=== PATIENT | female | born 1970 | race Caucasian/White ===

== ENCOUNTER 2019-02-06 00:11 | Inpatient (IN) | payer BC ==
[2019-02-06] MEDS ORDERED: ACETAMINOPHEN 325 MG TAB PO (01:00)
[2019-02-06] MEDS: SOD CHLORIDE 0.9% 1,000 ML IV ×2 (01:11→21:00)
[2019-02-06] MEDS: PIPER-TAZO 3.375 GM IV (PMX) 100 ML IVPB ×4 (01:11→22:49)
[2019-02-06 05:33] LABS: ADD MAN DIFF? NO
[2019-02-06 05:36] LABS: WHITE BLOOD COUNT 6.7 10^3/ul (4.8-10.8)
[2019-02-06 05:36] LABS: BASOPHILS % 0.4 % (0.0-2.0); EOSINOPHILS # 0.6 10^3/ul (0.0-0.5); EOSINOPHILS % 8.7 % (0.0-7.0); HEMATOCRIT 38.1 % (37.0-47.0); HEMOGLOBIN 12.8 g/dl (12.0-16.0); LYMPHOCYTES # 1.9 10^3/ul (0.8-2.9); LYMPHOCYTES % 29.1 % (15.0-51.0); MEAN CORPUSCULAR HEMOGLOBIN 30.5 pg (29.0-33.0); MEAN CORPUSCULAR HGB CONC 33.6 g/dl (32.0-37.0); MEAN CORPUSCULAR VOLUME 90.7 fl (82.0-101.0); MEAN PLATELET VOLUME 11.3 fl (7.4-10.4); MONOCYTE # 0.4 10^3/ul (0.3-0.9); MONOCYTES % 6.6 % (0.0-11.0); NEUTROPHIL # 3.7 10^3/ul (1.6-7.5); NEUTROPHILS % 54.8 % (39.0-77.0); PLATELET COUNT 129 10^3/UL (140-415); RED CELL DISTRIBUTION WIDTH 12.7 % (11.5-14.5)
[2019-02-06] MEDS: PANTOPRAZOLE (EC) 40 MG TAB PO (05:42)
[2019-02-06 06:12] LABS: ALANINE AMINOTRANSFERASE 30 IU/L (13-69); ALBUMIN 2.9 g/dl (3.3-4.9); ALBUMIN/GLOBULIN RATIO 0.96; ALKALINE PHOSPHATASE 62 IU/L (42-121); ASPARTATE AMINO TRANSFERASE 21 IU/L (15-46); BILIRUBIN,INDIRECT 0.8 mg/dl (0-1.1); BILIRUBIN,TOTAL 0.8 mg/dl (0.2-1.3); BLOOD UREA NITROGEN 12 mg/dl (7-20); CARBON DIOXIDE 22 mmol/L (21-31); CHLORIDE 111 mmol/L (97-110); CREATININE 0.53 mg/dl (0.44-1.00); Estimated GFR > 60 mL/min (>60); GLUCOSE 82 mg/dl (70-220); TOTAL PROTEIN 5.9 g/dl (6.1-8.1)
[2019-02-06 06:45] LABS: ANION GAP 8 (5-13); SODIUM 141 mmol/L (135-144)
[2019-02-06] MEDS: ENOXAPARIN 40 MG/0.4 ML SYG SC (08:27)
[2019-02-06 12:37] LABS: HEMOGLOBIN A1C 5.3 % (0-5.9)
[2019-02-06] MEDS: CLOTRIMAZOLE 1% 30 GM CR TOP ×2 (14:33→22:07)
[2019-02-06] MEDS: ACYCLOVIR 800 MG TAB PO ×2 (14:34→22:06)
[2019-02-06] MEDS ORDERED: VANCOMYCIN IV PER PHARMACY XX (17:00)
[2019-02-06] MEDS: VANCOMYCIN HCL 1.75 GM in SOD CHLORIDE 0.9% 500 ML IVPB (18:05)
[2019-02-07] MEDS: HYDROCODONE/APAP (5/325) TAB PO ×2 (01:46→20:16)
[2019-02-07] MEDS: SOD CHLORIDE 0.9% 1,000 ML IV (03:16)
[2019-02-07] MEDS: PIPER-TAZO 3.375 GM IV (PMX) 100 ML IVPB ×2 (05:08→13:21)
[2019-02-07 05:45] LABS: ADD MAN DIFF? NO
[2019-02-07] MEDS: VANCOMYCIN HCL 1.5 GM in SOD CHLORIDE 0.9% 250 ML IVPB (05:49)
[2019-02-07 05:51] LABS: BASOPHILS % 0.3 % (0.0-2.0); EOSINOPHILS # 0.5 10^3/ul (0.0-0.5); EOSINOPHILS % 6.6 % (0.0-7.0); HEMATOCRIT 37.7 % (37.0-47.0); HEMOGLOBIN 12.9 g/dl (12.0-16.0); LYMPHOCYTES # 1.4 10^3/ul (0.8-2.9); LYMPHOCYTES % 20.3 % (15.0-51.0); MEAN CORPUSCULAR HEMOGLOBIN 30.7 pg (29.0-33.0); MEAN CORPUSCULAR HGB CONC 34.2 g/dl (32.0-37.0); MEAN CORPUSCULAR VOLUME 89.8 fl (82.0-101.0); MEAN PLATELET VOLUME 10.7 fl (7.4-10.4); MONOCYTE # 0.5 10^3/ul (0.3-0.9); MONOCYTES % 7.1 % (0.0-11.0); NEUTROPHIL # 4.5 10^3/ul (1.6-7.5); NEUTROPHILS % 65.4 % (39.0-77.0); PLATELET COUNT 159 10^3/UL (140-415); RED CELL DISTRIBUTION WIDTH 12.5 % (11.5-14.5)
[2019-02-07 05:51] LABS: WHITE BLOOD COUNT 6.9 10^3/ul (4.8-10.8)
[2019-02-07] MEDS: PANTOPRAZOLE (EC) 40 MG TAB PO (05:52)
[2019-02-07 06:13] LABS: ANION GAP 6 (5-13); BLOOD UREA NITROGEN 14 mg/dl (7-20); CALCIUM 8.6 mg/dl (8.4-10.2); CARBON DIOXIDE 25 mmol/L (21-31); CHLORIDE 109 mmol/L (97-110); CREATININE 0.56 mg/dl (0.44-1.00); Estimated GFR > 60 mL/min (>60); GLUCOSE 102 mg/dl (70-220); POTASSIUM 3.9 mmol/L (3.5-5.1); SODIUM 140 mmol/L (135-144)
[2019-02-07] MEDS: CLOTRIMAZOLE 1% 30 GM CR TOP ×2 (08:19→20:17)
[2019-02-07] MEDS: ACYCLOVIR 800 MG TAB PO ×3 (08:19→20:16)
[2019-02-07] MEDS: ENOXAPARIN 40 MG/0.4 ML SYG SC (08:22)
[2019-02-07 15:06] LABS: HIV 1&2 ANTIBODY NEGATIVE (NEGATIVE)
[2019-02-07] MEDS: DOXYCYCLINE 100 MG TAB PO (20:16)
[2019-02-08] MEDS: PANTOPRAZOLE (EC) 40 MG TAB PO (05:40)
[2019-02-08] MEDS: SOD CHLORIDE 0.9% 1,000 ML IV ×2 (05:40→13:00)
[2019-02-08] MEDS: ENOXAPARIN 40 MG/0.4 ML SYG SC (09:38)
[2019-02-08] MEDS: DOXYCYCLINE 100 MG TAB PO (09:39)
[2019-02-08] MEDS: ACYCLOVIR 800 MG TAB PO ×3 (09:39→21:11)
[2019-02-08] MEDS: CLOTRIMAZOLE 1% 30 GM CR TOP ×2 (09:41→21:10)
[2019-02-08] MEDS ORDERED: VANCOMYCIN IV PER PHARMACY XX (16:00)
[2019-02-08] MEDS: DIPHENHYDRAMINE 25 MG CAP PO (19:10)
[2019-02-08] MEDS: VANCOMYCIN HCL 1.5 GM in SOD CHLORIDE 0.9% 250 ML IVPB (19:56)
[2019-02-08 22:58] LABS: VARICELLA-ZOSTER VIRUS AB IgM 0.45
[2019-02-09] MEDS: DIPHENHYDRAMINE 25 MG CAP PO (01:04)
[2019-02-09] MEDS: PANTOPRAZOLE (EC) 40 MG TAB PO (06:08)
[2019-02-09 07:04] LABS: CREATININE 0.59 mg/dl (0.44-1.00)
[2019-02-09 07:04] LABS: BLOOD UREA NITROGEN 14 mg/dl (7-20)
[2019-02-09] MEDS: VANCOMYCIN HCL 1.5 GM in SOD CHLORIDE 0.9% 250 ML IVPB ×2 (08:47→18:31)
[2019-02-09] MEDS: ACYCLOVIR 800 MG TAB PO (08:47)
[2019-02-09] MEDS: ENOXAPARIN 40 MG/0.4 ML SYG SC (09:03)
[2019-02-09] MEDS: CLOTRIMAZOLE 1% 30 GM CR TOP ×2 (11:51→20:58)
[2019-02-09] MEDS: CLOBETASOL 0.05% 15 GM OINT TOP ×2 (13:45→20:58)
[2019-02-09] MEDS: predniSONE 20 MG TAB PO (13:45)
[2019-02-09] MEDS: PIPER-TAZO 3.375 GM IV (PMX) 100 ML IVPB ×2 (13:45→18:03)
[2019-02-10] MEDS: PIPER-TAZO 3.375 GM IV (PMX) 100 ML IVPB ×4 (00:34→18:27)
[2019-02-10 05:34] LABS: ADD MAN DIFF? NO
[2019-02-10 05:37] LABS: BASOPHILS % 0.1 % (0.0-2.0); EOSINOPHILS % 0.1 % (0.0-7.0); HEMATOCRIT 37.9 % (37.0-47.0); HEMOGLOBIN 13.2 g/dl (12.0-16.0); LYMPHOCYTES # 0.9 10^3/ul (0.8-2.9); LYMPHOCYTES % 10.1 % (15.0-51.0); MEAN CORPUSCULAR HEMOGLOBIN 30.6 pg (29.0-33.0); MEAN CORPUSCULAR HGB CONC 34.8 g/dl (32.0-37.0); MEAN CORPUSCULAR VOLUME 87.7 fl (82.0-101.0); MEAN PLATELET VOLUME 10.4 fl (7.4-10.4); MONOCYTE # 0.4 10^3/ul (0.3-0.9); MONOCYTES % 4.4 % (0.0-11.0); NEUTROPHIL # 7.9 10^3/ul (1.6-7.5); NEUTROPHILS % 84.9 % (39.0-77.0); PLATELET COUNT 190 10^3/UL (140-415); RED BLOOD COUNT 4.32 10^6/ul (4.20-5.40); RED CELL DISTRIBUTION WIDTH 12.3 % (11.5-14.5)
[2019-02-10 05:37] LABS: WHITE BLOOD COUNT 9.3 10^3/ul (4.8-10.8)
[2019-02-10] MEDS: PANTOPRAZOLE (EC) 40 MG TAB PO (05:37)
[2019-02-10 06:00] LABS: VANCOMYCIN,TROUGH 8.7 ug/ml (10.0-20.0)
[2019-02-10] MEDS: VANCOMYCIN HCL 1.5 GM in SOD CHLORIDE 0.9% 250 ML IVPB (06:21)
[2019-02-10] MEDS: predniSONE 20 MG TAB PO (08:50)
[2019-02-10] MEDS: CLOBETASOL 0.05% 15 GM OINT TOP ×2 (08:51→21:36)
[2019-02-10] MEDS: CLOTRIMAZOLE 1% 30 GM CR TOP ×2 (08:51→21:28)
[2019-02-10] MEDS: ENOXAPARIN 40 MG/0.4 ML SYG SC (08:58)
[2019-02-10] MEDS: VANCOMYCIN HCL 1.25 GM in SOD CHLORIDE 0.9% 250 ML IVPB ×2 (14:33→21:36)
[2019-02-11] MEDS: PIPER-TAZO 3.375 GM IV (PMX) 100 ML IVPB ×3 (00:39→12:00)
[2019-02-11] MEDS: HYDROCODONE/APAP (5/325) TAB PO (05:23)
[2019-02-11] MEDS: PANTOPRAZOLE (EC) 40 MG TAB PO (05:23)
[2019-02-11 05:43] LABS: BLOOD UREA NITROGEN 19 mg/dl (7-20)
[2019-02-11] MEDS: VANCOMYCIN HCL 1.25 GM in SOD CHLORIDE 0.9% 250 ML IVPB (06:16)
[2019-02-11] MEDS: predniSONE 20 MG TAB PO (08:27)
[2019-02-11] MEDS: ENOXAPARIN 40 MG/0.4 ML SYG SC (08:38)
[2019-02-11] MEDS: CLOBETASOL 0.05% 15 GM OINT TOP (09:11)
[2019-02-11] MEDS: CLOTRIMAZOLE 1% 30 GM CR TOP (09:11)
[2019-02-11 14:58] LABS: VANCOMYCIN,TROUGH 10.2 ug/ml (10.0-20.0)
[2019-02-11] MEDS ORDERED: PROPOFOL 20 ML (18:14)
[2019-02-11] MEDS ORDERED: ROCURONIUM 50 MG INJ (18:14)
[2019-02-11] MEDS ORDERED: MIDAZOLAM 1 MG/ML 2 ML INJ (18:15)
[2019-02-11] MEDS ORDERED: ROPIVACAINE 0.5 % 30 ML VIAL (18:18)
[2019-02-11] MEDS ORDERED: CEFAZOLIN 1 GM INJ (18:43)
[2019-02-11] MEDS ORDERED: ONDANSETRON 4 MG INJ (18:43)
[2019-02-11] MEDS ORDERED: SUGAMMADEX SODIUM 200 MG/2 ML VIAL IV (19:41)
== END 2019-02-11 17:23 | disposition home or self-care (01) | DRG 603 ==
LOC: 2NE 00:11
DX: L03.113 Cellulitis of right upper limb (principal); B02.8 Zoster with other complications; L23.7 Allergic contact dermatitis due to plants, except food; B97.89 Other viral agents as the cause of diseases classified elsewhere; L24.7 Irritant contact dermatitis due to plants, except food; E66.9 Obesity, unspecified; Z68.32 Body mass index [BMI] 32.0-32.9, adult; E11.9 Type 2 diabetes mellitus without complications
CPT/HCPCS: 80048; 80053; 80202; 82565; 83036; 84520; 85025; 86703; 87070

== ENCOUNTER 2019-03-06 21:55 | Emergency (ER) | payer BC ==
[2019-03-06 22:26] LABS: ADD MAN DIFF? NO
[2019-03-06] MEDS: morphine 4 MG/ML VIAL IV (22:26)
[2019-03-06] MEDS: ONDANSETRON 4 MG INJ IV (22:26)
[2019-03-06] MEDS: SOD CHLORIDE 0.9% 1,000 ML IV (22:26)
[2019-03-06 22:30] LABS: BASOPHILS % 0.3 % (0.0-2.0); EOSINOPHILS # 0.2 10^3/ul (0.0-0.5); EOSINOPHILS % 1.3 % (0.0-7.0); HEMATOCRIT 41.3 % (37.0-47.0); HEMOGLOBIN 13.8 g/dl (12.0-16.0); MEAN CORPUSCULAR HEMOGLOBIN 30.4 pg (29.0-33.0); MEAN CORPUSCULAR HGB CONC 33.4 g/dl (32.0-37.0); MEAN PLATELET VOLUME 9.9 fl (7.4-10.4); MONOCYTE # 0.5 10^3/ul (0.3-0.9); MONOCYTES % 3.9 % (0.0-11.0); NEUTROPHIL # 10.8 10^3/ul (1.6-7.5); NEUTROPHILS % 86.1 % (39.0-77.0); PLATELET COUNT 190 10^3/UL (140-415); RED BLOOD COUNT 4.54 10^6/ul (4.20-5.40); RED CELL DISTRIBUTION WIDTH 12.1 % (11.5-14.5)
[2019-03-06 22:30] LABS: WHITE BLOOD COUNT 12.5 10^3/ul (4.8-10.8)
[2019-03-06 22:41] LABS: ADD UMIC YES; UR ASCORBIC ACID NEGATIVE (NEGATIVE); UR BACTERIA FEW /HPF (NONE SEEN); UR BILIRUBIN (Dip) NEGATIVE (NEGATIVE); UR BLOOD (Dip) 3+ mg/dL (NEGATIVE); UR CLARITY SLIGHTLY CLOUDY (CLEAR); UR COLOR YELLOW (YELLOW); UR GLUCOSE (Dip) NEGATIVE (NEGATIVE); UR KETONES (Dip) NEGATIVE (NEGATIVE); UR LEUKOCYTE ESTERASE (Dip) TRACE Leu/ul (NEGATIVE); UR MUCUS FEW /HPF (NONE SEEN); UR NITRITE (Dip) NEGATIVE (NEGATIVE); UR RBC > 182 /HPF (0-5); UR SPECIFIC GRAVITY (Dip) 1.019 (1.003-1.030); UR TOTAL PROTEIN (Dip) 2+ mg/dl (NEGATIVE); UR UROBILINOGEN (Dip) 1+ mg/dL (NEGATIVE); UR WBC 64 /HPF (0-5)
[2019-03-06 22:50] LABS: ALANINE AMINOTRANSFERASE 43 IU/L (13-69); ALBUMIN 4.2 g/dl (3.3-4.9); ALBUMIN/GLOBULIN RATIO 1.16; ALKALINE PHOSPHATASE 82 IU/L (42-121); ANION GAP 9 (5-13); ASPARTATE AMINO TRANSFERASE 27 IU/L (15-46); BILIRUBIN,INDIRECT 0.6 mg/dl (0-1.1); BILIRUBIN,TOTAL 0.6 mg/dl (0.2-1.3); BLOOD UREA NITROGEN 19 mg/dl (7-20); CALCIUM 9.1 mg/dl (8.4-10.2); CARBON DIOXIDE 29 mmol/L (21-31); CHLORIDE 105 mmol/L (97-110); CREATININE 0.61 mg/dl (0.44-1.00); Estimated GFR > 60 mL/min (>60); GLUCOSE 134 mg/dl (70-220); LIPASE 49 U/L (23-300); SODIUM 143 mmol/L (135-144); TOTAL PROTEIN 7.8 g/dl (6.1-8.1)
[2019-03-06] MEDS: CEFTRIAXONE 1 GM/50 ML (PMX) 50 ML IVPB (23:34)
[2019-03-07] MEDS: KETOROLAC 30 MG INJ IV (00:12)
== END 2019-03-07 00:28 | disposition home or self-care (01) ==
LOC: E/R 03-07 00:28
DX: R10.9 Unspecified abdominal pain (principal)
CPT/HCPCS: 36415; 74176; 80053; 81001; 81025; 83690; 85025; 87086; 96374; 96375; 99285-25

== ENCOUNTER 2019-03-17 19:06 | Emergency (ER) | payer BC ==
[2019-03-17] MEDS: CIPROFLOXACIN 500 MG TAB PO (21:03)
[2019-03-17] MEDS: PHENAZOPYRIDINE 100 MG TAB PO (21:03)
[2019-03-17 21:20] LABS: ADD UMIC YES; UR ASCORBIC ACID NEGATIVE (NEGATIVE); UR BILIRUBIN (Dip) NEGATIVE (NEGATIVE); UR BLOOD (Dip) 1+ mg/dL (NEGATIVE); UR CLARITY CLEAR (CLEAR); UR COLOR YELLOW (YELLOW); UR GLUCOSE (Dip) NEGATIVE (NEGATIVE); UR KETONES (Dip) NEGATIVE (NEGATIVE); UR LEUKOCYTE ESTERASE (Dip) NEGATIVE Leu/ul (NEGATIVE); UR MUCUS FEW /HPF (NONE SEEN); UR NITRITE (Dip) NEGATIVE (NEGATIVE); UR RBC 2 /HPF (0-5); UR SPECIFIC GRAVITY (Dip) 1.026 (1.003-1.030); UR TOTAL PROTEIN (Dip) NEGATIVE (NEGATIVE); UR UROBILINOGEN (Dip) NEGATIVE (NEGATIVE); UR WBC 3 /HPF (0-5)
[2019-03-17] MEDS: IBUPROFEN 600 MG TAB PO (21:46)
[2019-03-17] MEDS: ACETAMINOPHEN 500 MG TAB PO (21:47)
== END 2019-03-17 21:58 | disposition home or self-care (01) ==
LOC: FTE 19:06
DX: R30.0 Dysuria (principal); R82.79 Other abnormal findings on microbiological examination of urine
CPT/HCPCS: 81001; 87086; 99283